=== PATIENT | male | born 1995 | race Caucasian/White ===

== ENCOUNTER 2017-09-15 19:01 | Emergency (ER) | payer OTHER ==
[2017-09-15 19:10] VITALS: RESP 18; O2SAT 97
[2017-09-15] MEDS ORDERED: NS 1,000 ML IV ONE (19:21)
--- NOTE | 2017-09-15 19:27 | EDPHY ---
HPI/HX/ROS/PE/MDM Narrative: CHIEF COMPLAINT: Chest tightness HISTORY OF PRESENT ILLNESS: The patient is a 22 y/o male arriving with his friend for evaluation of chest tightness while working out this evening. He says , "I just got done with a marginally intense yoga with weights workout. Twenty minutes through the workout I became pretty tired and had trouble breathing, chest tightness, and lightheadedness." These symptoms took about 10-15 minutes to resolve and the patient states he normally recovers after 2 minutes. He denies associated dizziness, near-syncope, syncope, chest pain, difficulty swallowing, itching, or rash. He's had four prior episodes of a racing heart rate and 3 of those episodes were during workouts; however, he says his symptoms today felt different and were "more of a pounding than racing." His friend at bedside states he looks more red than is normal for him during workouts. He ate a normal meal at lunch and denies any additional allergic symptoms. He denies excessive caffeine use, alcohol use, illicit drug use, or Adderall use today. No fever, chills, chest pain, palpitations, vomiting, diarrhea, urinary complaints, headache. REVIEW OF SYSTEMS: Aside from elements discussed in the HPI, a comprehensive 10-point review of systems was reviewed and is negative. PAST MEDICAL HISTORY: Heart murmur, left eye injury from childhood SOCIAL HISTORY: Smoker 5 cigarettes in a year, 2 beers last night none today, no illicit drug use VITAL SIGNS: Reviewed by me GENERAL: Well-developed, well-nourished, resting comfortably in no respiratory distress. HEENT: Atraumatic. Face: flushed. Eyes: Left pupil offset and oval shaped, sitting higher in iris, normally reactive. No icterus, no injection, there is redness and swelling on eyelids. Mouth: pharynx mildly erythematous, uvula mildly edematous, moist mucous membranes. No lesions. Neck: supple with no adenopathy. No stridor LUNGS: Clear to auscultation bilaterally, no wheezes, rhonchi or rales. CARDIAC: Tachycardic rate and rhythm, no rubs, murmurs or gallops. ABDOMEN: Soft, nontender, nondistended, bowel sounds normal. BACK: No CVA tenderness. EXTREMITIES: No trauma. No edema. Range of motion is normal throughout. NEURO: Alert and oriented, grossly nonfocal. SKIN: Warm and dry, no rash. PSYCHIATRIC: Normal mentation, no agitation. Portions of this note were transcribed by a medical hospital sales. I personally performed a history, physical exam, medical decision making, and confirmed accuracy of information the transcribed note. ED Course: This is a healthy 22 y/o male who presents for evaluation following a 15-minute period of chest tightness, shortness of breath, and lightheadedness during a strenuous workout this evening. He has a prior history of 4 episodes of a rapid heart rate, but says his symptoms today do not feel similar to those events. He is mildly tachycardic here. He has facial flushing, but denies any allergic symptoms or history. Plan for IV, labs, EKG. 1L IV NS administered. The 12 lead EKG was interpreted by myself. Sinus rhythm rate 80. No significant ST elevation or depression. See hard copy and/or "tracemaster" electronic copy for interpretation. Patient received IV fluids. Labs including troponin were normal. On re- examination he reports feeling improved. He is no longer flush. I discussed the evaluation with the patient. He reports feeling well currently. Patient will follow up with Cardiology either here or in [place]. He understands importance of returning to the emergency department if he experiences a recurrence symptoms, develops fainting, lightheadedness, or other concerns. MDM: Differential diagnoses for the patient's symptom complex was considered including but not limited to anxiety, drug or alcohol use, drug or alcohol withdrawal, dehydration, allergic reaction, arrhythmia, cardiac causes. - Data Points Laboratory Results: Laboratory Results 09/15/17 19:30 09/15/17 19:30 09/15/17 09/15/17 19:30 19:30 WBC 7.98 10^3/uL 10^3/uL (3.80-9.50) RBC 5.39 10^6/uL 10^6/uL (4.40-6.38) Hgb 16.3 g/dL g/dL (13.7-17.5) Hct 45.5 % % (40.0-51.0) MCV 84.4 fL fL (81.5-99.8) MCH 30.2 pg pg (27.9-34.1) MCHC 35.8 g/dL g/dL (32.4-36.7) RDW 11.8 % % (11.5-15.2) Plt Count 140 10^3/uL L 10^3/uL (150-400) MPV 11.7 fL fL (8.7-11.7) Neut % (Auto) 71.7 % % (39.3-74.2) Lymph % (Auto) 19.2 % % (15.0-45.0) Ogle % (Auto) 7.5 % % (4.5-13.0) Eos % (Auto) 0.8 % % (0.6-7.6) Baso % (Auto) 0.5 % % (0.3-1.7) Nucleat RBC Rel Count 0.0 % % (0.0-0.2) Absolute Neuts (auto) 5.73 10^3/uL 10^3/uL (1.70-6.50) Absolute Lymphs (auto) 1.53 10^3/uL 10^3/uL (1.00-3.00) Absolute Monos (auto) 0.60 10^3/uL 10^3/uL (0.30-0.80) Absolute Eos (auto) 0.06 10^3/uL 10^3/uL (0.03-0.40) Absolute Basos (auto) 0.04 10^3/uL 10^3/uL (0.02-0.10) Absolute Nucleated RBC 0.00 10^3/uL 10^3/uL (0-0.01) Immature Gran % 0.3 % % (0.0-1.1) Immature Gran # 0.02 10^3/uL 10^3/uL (0.00-0.10) Sodium 140 mEq/L mEq/L (134-144) Potassium 3.8 mEq/L mEq/L (3.5-5.2) Chloride 104 mEq/L mEq/L (97-110) Carbon Dioxide 25 mEq/l mEq/l (22-31) Anion Gap 11 mEq/L mEq/L (8-16) BUN 16 mg/dL mg/dL (7-23) Creatinine 1.0 mg/dL mg/dL (0.7-1.3) Estimated GFR > 60 Glucose 110 mg/dL H mg/dL (70-100) Calcium 10.3 mg/dL mg/dL (8.5-10.4) Troponin I 0.013 ng/mL ng/mL (0.000-0.034) Medications Given: Discontinued Medications Sodium Chloride (Ns) 1,000 mls @ 0 mls/hr IV EDNOW ONE; Wide Open PRN Reason: Protocol Stop: 09/15/17 19:22 Last Admin: 09/15/17 19:41 Dose: 1,000 mls General Time Seen by Provider: 09/15/17 19:08 Initial Vital Signs: Initial Vital Signs Temperature (C) 36.7 C 09/15/17 19:05 Heart Rate 107 H 09/15/17 19:05 Respiratory Rate 18 09/15/17 19:05 Blood Pressure 126/71 H 09/15/17 19:05 O2 Sat (%) 97 09/15/17 19:05 O2 Delivery Mode Room Air Allergies/Adverse Reactions: No Known Allergies Allergy (Unverified 09/15/17 19:07) Home Medications: Medication Instructions Recorded NK [No Known Home Meds] 09/15/17 Departure - Departure Disposition: Home, Routine, Self-Care Clinical Impression: Shortness of breath, Palpitations Condition: Good Instructions: Palpitations (ED), Dyspnea (ED) Additional Instructions: Please drink plenty of fluid. Get plenty of rest. Return to the emergency department or seek care urgently if you have recurrent episodes of significant shortness of breath and racing heart with exertion. Please follow up with a analytical research chemist as directed below. Avoid caffeine, alcohol, and illicit drugs. Referrals: TITO SAAVEDRA [Other] - As per Instructions Allison Diaz MD [Medical Doctor] - As per Instructions Report Scribed for: Jenny Harris Report Scribed by: Nataliya Beyer Date of Report: 09/15/17 Time of Report: 19:12
--- NOTE | 2017-09-15 19:44 | CPEKG ---
Heart Rate: 80 RR Interval: 750 P-R Interval: 188 QRSD Interval: 94 QT Interval: 344 QTC Interval: 397 P [place]: 77 QRS [place]: 55 T Wave [place]: 24 EKG Severity - NORMAL ECG - EKG Impression: SINUS RHYTHM Electronically Signed By: Jenny Harris 15-Sep-2017 22:42:08
[2017-09-15 19:45] LABS: % IMMATURE GRANULYOCYTES 0.3 % (0.0-1.1); ABSOLUTE IMMATURE GRANULOCYTES 0.02 10^3/uL (0.00-0.10); ADD DIFF? NO; ADD MORPH? NO; ADD SCAN? NO; ATYPICAL LYMPHOCYTE FLAG 0 (0-99); FRAGMENT RBC FLAG 0 (0-99); HEMATOCRIT 45.5 % (40.0-51.0); HEMOGLOBIN 16.3 g/dL (13.7-17.5); LEFT SHIFT FLG 0 (0-99); LIPEMIA HEMOLYSIS FLAG 90 (0-99); MEAN CELL HEMOGLOBIN 30.2 pg (27.9-34.1); MEAN CELL HEMOGLOBIN CONCENTR. 35.8 g/dL (32.4-36.7); MEAN CELL VOLUME 84.4 fL (81.5-99.8); MEAN PLATELET VOLUME 11.7 fL (8.7-11.7); PLATELET CLUMPS FLAG 0 (0-99); PLATELET COUNT 140 10^3/uL (150-400); RED BLOOD CELL COUNT 5.39 10^6/uL (4.40-6.38); RED CELL DISTRIBUTION WIDTH 11.8 % (11.5-15.2)
[2017-09-15 19:47] LABS: ANION GAP 11 mEq/L (8-16); CALCIUM 10.3 mg/dL (8.5-10.4); CARBON DIOXIDE 25 mEq/l (22-31); CHLORIDE 104 mEq/L (97-110); GLOMERULAR FILTRATION RATE > 60; GLUCOSE 110 mg/dL (70-100); POTASSIUM 3.8 mEq/L (3.5-5.2); SODIUM 140 mEq/L (134-144)
[2017-09-15 19:59] LABS: TROPONIN I 0.013 ng/mL (0.000-0.034)
[2017-09-15 20:38] VITALS: BP 131/80; PULSE 81; TEMP 98.6
== END 2017-09-15 20:46 | disposition home or self-care (01) ==
DX: R06.02 Shortness of breath (principal); R00.2 Palpitations; F17.210 Nicotine dependence, cigarettes, uncomplicated; E86.9 Volume depletion, unspecified